=== PATIENT | male | born 2000 | race Caucasian/White ===

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

== ENCOUNTER 2021-03-09 17:14 | Outpatient (RCR) | payer OTHER ==
[2020-12-14 21:34] VITALS: BP 139/80
[2021-01-12 17:15] VITALS: BP 122/63
[2021-01-12 17:50] VITALS: BP 122/85
[2021-02-09 17:57] VITALS: BP 124/87
[2021-02-09 18:35] VITALS: BP 120/72
[~2021-03-09] VITALS: Ht 180.3 cm; Wt 90.9 kg
[2021-03-09 17:26] VITALS: BP 124/83
--- NOTE | 2021-03-09 17:40 | NUR ---
Pt. to outpatiet services for allergy injections. This RN used Pt.'s non-formulary medication, that is stored in hospital medication refrigerator. Injections administered as ordered. Pt. waiting, with forestry instructor, for 30 minutes post injection, as ordered.
[2021-03-09 18:01] VITALS: BP 118/77
== END 2021-03-14 | disposition home or self-care (01) ==
LOC: AMSURD
DX: Z51.6 Encounter for desensitization to allergens (principal); J45.20 Mild intermittent asthma, uncomplicated; J30.81 Allergic rhinitis due to animal (cat) (dog) hair and dander; J30.2 Other seasonal allergic rhinitis; J30.1 Allergic rhinitis due to pollen

== ENCOUNTER 2021-06-27 13:49 | Outpatient (RCR) | payer OTHER ==
[2021-04-03 17:40] VITALS: BP 115/69
[2021-04-03 18:10] VITALS: BP 127/62
[2021-05-04 16:21] VITALS: BP 131/68
[2021-05-04 16:35] VITALS: BP 129/71
[2021-05-28 13:24] VITALS: BP 124/80
[2021-05-28 13:52] VITALS: BP 109/73
[~2021-06-27] VITALS: Ht 180.3 cm; Wt 90.9 kg
[2021-06-27 14:01] VITALS: BP 115/78
== END 2021-07-02 | disposition home or self-care (01) ==
LOC: AMSURD
DX: J30.1 Allergic rhinitis due to pollen (principal); J30.2 Other seasonal allergic rhinitis; J30.81 Allergic rhinitis due to animal (cat) (dog) hair and dander; J45.20 Mild intermittent asthma, uncomplicated